=== PATIENT | female | born 1990 | race Caucasian/White ===

== ENCOUNTER 2020-02-29 17:56 | Inpatient (IN) ==
[2020-02-29 17:17] LABS: Hematocrit 41.9 % (35.3-44.9); Hemoglobin 13.6 g/dL (11.5-15.4); Immature Platelets 19.3 % (1.1-6.1); Mean Corpuscular HGB Conc 32.5 g/dL (31.6-35.5); Mean Corpuscular Hemoglobin 28.5 pg (28.0-33.3); Mean Corpuscular Volume 87.7 fL (83.0-100.0); Mean Platelet Volume 13.5 fL (9.4-12.4); Red Blood Count 4.78 M/mcL (3.82-4.97); Red Cell Distribution Width 14.4 % (11.5-14.5); White Blood Count 11.3 K/mcL (4.3-11.1)
[2020-02-29] MEDS: *HR* HYDROmorphone PF 0.5 MG/0.5 ML SYRINGE IVP PRN ×2 (17:49→19:30)
[~2020-02-29 17:56] MED LIST: *HR* FentaNYL (PF) 100 MCG/2 ML VIAL ONE; *HR* HYDROMORPHONE 2 MG/ML VIAL ONE; *HR* Meperidine 25 MG/ML SYRINGE IVP PRN; *HR* OxyCODONE Immed Rel 5 MG TABLET PO PRN; *HR* Oxytocin 10 UNIT/ML VIAL IM ONE; *HR* Promethazine 25 MG/ML VIAL IVP PRN; *HR* Propofol 200 MG/20 ML VIAL IVP ONE; *HR* Succinylcholine 200 MG/10 ML VIAL IVP ONE; Acetaminophen IV 1,000 MG/100 ML INFUS..BTL IVPB ONE; Dexamethasone 4 MG/ML VIAL ONE; Famotidine 20 MG/2 ML VIAL IVP PRN; Metoclopramide 10 MG/2 ML VIAL IVP PRN; Ondansetron 4 MG/2 ML VIAL IVP ONE; Ondansetron 4 MG/2 ML VIAL ONE; Ringers Solution, Lactated 1,000 ML ONE
[2020-02-29] MEDS ORDERED: Ringers Solution, Lactated 1,000 ML IVC SCH (18:00)
[2020-02-29] MEDS ORDERED: Oxytocin 20 units/ LR 1000 mL 20 UNIT/1,000 ML BAG IVC ONE (19:06)
[2020-02-29] MEDS ORDERED: Sennosides 8.6 MG TABLET PO PRN (19:51)
[2020-02-29] MEDS ORDERED: Metoclopramide 10 MG/2 ML VIAL IVP PRN (19:51)
[2020-02-29] MEDS ORDERED: Ondansetron 4 MG/2 ML VIAL IVP PRN (19:51)
[2020-02-29] MEDS ORDERED: Simethicone 80 MG TAB.CHEW PO PRN (19:51)
[2020-02-29] MEDS ORDERED: Oxytocin 20 units/ LR 1000 mL 20 UNIT/1,000 ML BAG IVC SCH ×2 (19:51)
[2020-02-29] MEDS ORDERED: Naloxone 0.4 MG/ML INJ IVP PRN (19:51)
[2020-02-29] MEDS: *HR* Buprenorphine HCl 8 MG TAB.SUBL SL SCH (21:43)
[2020-02-29] MEDS: Ketorolac 30 MG/ML VIAL IVP SCH (21:43)
[2020-02-29] MEDS: metroNIDAZOLE 500 MG TABLET PO SCH (21:44)
[2020-02-29] MEDS: cephALEXin 500 MG CAPSULE PO SCH (21:46)
[2020-03-01] MEDS: Acetaminophen IV 1,000 MG/100 ML INFUS..BTL IVPB SCH ×3 (01:42→11:17)
[2020-03-01 04:12] LABS: Basophils % 0.2 %; Eosinophils % 0.1 %; Monocytes % 4.7 %
[2020-03-01 04:14] LABS: Hematocrit 32.5 % (35.3-44.9); Hemoglobin 10.4 g/dL (11.5-15.4); Lymphocytes # 1.9 K/mcL (0.6-4.6); Lymphocytes % 12.4 %; Mean Corpuscular Hemoglobin 27.9 pg (28.0-33.3); Mean Corpuscular Volume 87.1 fL (83.0-100.0); Mean Platelet Volume 12.4 fL (9.4-12.4); Monocytes # 0.7 K/mcL (0.0-1.3); Neutrophils # 12.7 K/mcL (1.6-8.9); Platelet Count 117 K/mcL (140-400); Red Blood Count 3.73 M/mcL (3.82-4.97); Red Cell Distribution Width 14.2 % (11.5-14.5); Segmented Neutrophils % 81.6 %; White Blood Count 15.6 K/mcL (4.3-11.1)
[2020-03-01] MEDS: Ketorolac 30 MG/ML VIAL IVP SCH ×2 (04:34→11:17)
[2020-03-01 04:37] LABS: Platelet Estimate Decreased (Normal)
[2020-03-01] MEDS: Prenatal Vit/FA 1 EACH TABLET PO SCH (07:35)
[2020-03-01] MEDS: *HR* Buprenorphine HCl 8 MG TAB.SUBL SL SCH ×2 (07:35→19:36)
[2020-03-01] MEDS: cephALEXin 500 MG CAPSULE PO SCH ×3 (07:35→19:36)
[2020-03-01] MEDS: metroNIDAZOLE 500 MG TABLET PO SCH ×3 (07:35→19:36)
[2020-03-01] MEDS ORDERED: Lanolin 7 G OINT...G. TP PRN (19:52)
[2020-03-01] MEDS: Ibuprofen 600 MG TABLET PO PRN (20:20)
[2020-03-02] MEDS: Ibuprofen 600 MG TABLET PO PRN (06:08)
[2020-03-02 07:52] VITALS: BP 118/67
[2020-03-02] MEDS: Prenatal Vit/FA 1 EACH TABLET PO SCH (09:03)
[2020-03-02] MEDS: metroNIDAZOLE 500 MG TABLET PO SCH (09:03)
[2020-03-02] MEDS: *HR* Buprenorphine HCl 8 MG TAB.SUBL SL SCH (09:03)
[2020-03-02] MEDS: cephALEXin 500 MG CAPSULE PO SCH (09:03)
== END 2020-03-02 11:10 | disposition home or self-care (01) | DRG 540 ==
LOC: 1NENULAB → 1NENUOBS 19:51
PROVIDERS: ADMIT Obstetrics & Gynecology; ATTEND Obstetrics & Gynecology